=== PATIENT | male | born 1960 | race Caucasian/White ===

== ENCOUNTER 2023-03-02 19:15 | Emergency (ER) | payer SELFPAY ==
[~2023-03-02] VITALS: Ht 182.9 cm; Wt 90.7 kg
[2023-03-02 19:50] VITALS: BP_SYST 126
--- NOTE | 2023-03-02 19:50 | NUR ---
Patient triaged and placed in [address] [facility] gurney. VSS and patient appears in no acute distress at this time. Accompanied by ems care staff, awaiting available bed, and MD notified of need for MSE.
[2023-03-02] MEDS ORDERED: DIAZEPAM 10 MG/2 ML DISP.SYRIN IM ONE (20:00)
[2023-03-02] MEDS ORDERED: LORazepam 2 MG/ML VIAL IM ONE ×2 (20:45→21:30)
--- NOTE | 2023-03-02 21:35 | NUR ---
Patient to ER bed 6 to gown for evaluation. Side rails up. Report given to PRETTY CARRANZA(REG).
--- NOTE | 2023-03-02 21:35 | NUR ---
Patient BIBA for c/o restless and appearing agitated in public on the streets. A good restorationism called the ambulance because the patient appeared erratic. Patient admitted to smoking meth this afternoon and last night. He is alert and oriented x2-3 with periods of random outbursts. Bilateral legs and arms flailing all over the place. Dr. Christie at bedside to MSE patient. Patient appeared to be spontaneous and always looks like he about to jump out of bed. Will continue to monitor. HR 120-130. Attempted EKG but reading moving around. made aware. Will continue to monitor.
[2023-03-02 22:07] LABS: BLOOD, URINE NEGATIVE (NEGATIVE); CLARITY/URINE CLEAR (CLEAR); COLOR,URINE YELLOW (YELLOW); GLUCOSE,URINE NEGATIVE (NEGATIVE); KETONES,URINE NEGATIVE (NEGATIVE); LEUKOCYTE ESTERASE ,URINE NEGATIVE (NEGATIVE); NITRITE, URINE NEGATIVE (NEGATIVE); PH,URINE 5.5 (5.0-8.0); PROTEIN URINE 1+ (NEGATIVE); UROBILINOGEN,URINE 0.2 (0.2-1.0)
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
[2023-03-02] MEDS ORDERED: HALOPERIDOL LACTATE 5 MG/ML VIAL IM ONE (22:15)
[2023-03-02] MEDS ORDERED: DIPHENHYDRAMINE INJ 50 MG/ML VIAL IM ONE (22:15)
[2023-03-02 22:16] LABS: BILIRUBIN,URINE 1+ (NEGATIVE)
[2023-03-02 22:17] LABS: BACTERIA,URINE FEW /HPF (None Seen); MUCUS,URINE None Seen /LPF (None Seen); RBC,URINE 0-3 /HPF (0-3); WBC,URINE 0-3 /HPF (0-3)
[2023-03-02 22:19] LABS: BARBITURATE, URINE NEGATIVE (NEG <=200); BENZODIAZEPINE, URINE NEGATIVE (NEG <=150); CANNABINOID, URINE POSITIVE (NEG <=50); COCAINE, URINE NEGATIVE (NEG <=150); METHAMPHETAMINES SCREEN,URINE POSITIVE (NEG <=500); OPIATE, URINE POSITIVE (NEG <=100); PHENCYCLIDINE SCREEN,URINE NEGATIVE (NEG <=25); UR TRICYCLIC ANTIDEPRESSANTS NEGATIVE (NEG <=300); URINE AMPHETAMINE POSITIVE (NEG <=500); URINE METHADONE NEGATIVE (NEG <=200); URINE OXYCODONE SCREEN NEGATIVE (NEG <=100); URINE PROPOXYPHENE SCREEN NEGATIVE (NEG <=300)
--- NOTE | 2023-03-02 23:06 | NUR ---
Patient placed on 2L NC for O2 saturation fluctuating between 92% to 93%. Dr. Jean made aware.
--- NOTE | 2023-03-02 23:07 | NUR ---
Patient vital signs taken.
--- NOTE | 2023-03-03 | NUR ---
Patient resting. Restraints off. VSS. Ate some pizza.
--- NOTE | 2023-03-03 05:33 | NUR ---
Patient road tested and needed two arms to hold the patient as he ambulated. Dr. Jean able to watch patient walk with assistance. Patient escorted via wheelchair back to bed. Pending discharge when he is steady on his feet.
[2023-03-03 06:26] VITALS: BP_SYST 140
--- NOTE | 2023-03-03 06:36 | NUR ---
Client put new clothes on. Social service consult placed for referral resources.
--- NOTE | 2023-03-03 07:10 | NUR ---
Endorsed to day shift RN for continuity of care. Patient stable. VSS. Changed into regular clothes. Breakfast provided.
--- NOTE | 2023-03-03 07:30 | NUR ---
RECEIVED VERBAL REPORT FROM OUTGOING NURSE TERE OLSEN. PT RESTING WITH EYES CLOSED, NO S/S OF DISCOMFORT NOTED.
--- NOTE | 2023-03-03 08:25 | NUR ---
Patient given written and verbal discharge instructions and verbalizes understanding. ER DR ZHENG discussed with patient the results and treatment provided. Patient in stable condition. ID arm band removed. Patient educated on pain management and to follow up with PMD. Pain Scale 0/10. Opportunity for questions provided and answered. Medication side effect fact sheet provided.
--- NOTE | 2023-03-05 09:26 | NUR ---
Professor Of Economics re: homeless resources and Advance Directive information Patient not seen by social insurance administrator due to the patient discharging from the ER prior to me going in to see he patient. Is is unsure if the patient left with any homeless resources or information on advance directive. I attempted to reach back out to the patient, however there is no contact information left for the patient.
== END 2023-03-03 08:25 | disposition home or self-care (01) ==
LOC: SED 19:15
DX: F15.10 Other stimulant abuse, uncomplicated (principal); R00.0 Tachycardia, unspecified; Z79.899 Other long term (current) drug therapy
CPT/HCPCS: 99291; 80307; 93005; 96372; 81000; J1200; J1630; J2060